=== PATIENT | female | born 1955 | race Caucasian/White ===

== ENCOUNTER 2022-08-16 08:18 | Observation (INO) ==
[2022-08-16 09:08] LABS: Appearance Urine Clear (Clear); Bacteria Urine Automated Negative (Negative); Bilirubin Urine Negative (Negative); Blood Urine Trace (Negative); Color Urine Yellow; Epithelial Cell Urine Auto 20-30 /lpf (0-5); Glucose Urine UA Negative (Negative); Ketones Urine 1+ (Negative); Leukocyte Esterase Urine Negative (Negative); Nitrite Urine Negative (Negative); Protein Urine 1+ (Negative); Specific Gravity Urine 1.015 (1.000-1.030); Urobilinogen Urine Negative (Negative); pH Urine 7.5 (4.5-7.5)
[2022-08-16] MEDS ORDERED: MoRPHine SULFATE 4 MG/ML 1 ML CARP\\VIAL IV PRN (09:08)
[2022-08-16] MEDS ORDERED: ONDANSETRON INJ 2 MG/ML 2 ML VIAL IV STA (09:08)
[2022-08-16 09:09] LABS: Basophils # (auto) 0.03 K/uL (0-0.2); Basophils % (auto) 0.3 %; Eosinophils # (auto) 0.04 K/uL (0-0.50); Eosinophils % (auto) 0.4 %; Hematocrit (blood only) 43.3 % (37.0-47.0); Hemoglobin 14.5 g/dl (12.0-16.0); Immature Granulocytes # (auto) 0.06 K/uL (0.01-0.20); Immature Granulocytes % (auto) 0.7 %; Lymphocytes # (auto) 1.29 K/uL (1.2-3.4); Lymphocytes % (auto) 14.4 %; Mean Corpuscular Hemoglobin 28.8 pg (25.0-34.0); Mean Corpuscular Hgb Conc 33.5 g/dL (32.0-36.0); Mean Corpuscular Volume 85.9 fL (80.0-100.0); Mean Platelet Volume 9.7 fL (9.4-12.4); Monocytes # (auto) 0.84 K/uL (0.11-0.59); Monocytes % (auto) 9.4 %; Neutrophils # (auto) 6.67 K/uL (1.40-6.50); Neutrophils % (auto) 74.8 %; Platelet Count 176 K/uL (130-400); RDW Coefficient of Variation 12.2 % (11.5-14.5); Red Blood Count 5.04 M/uL (4.20-5.40); White Blood Count 8.93 K/ul (4.8-10.8)
--- NOTE | 2022-08-16 09:12 | Emergency Department Note ---
Impression & Plan Acute upper abdominal pain, Peptic ulcer disease, Severe hypertension, Left- sided chest pain ED Provider Note INFORMANT: Patient and friend ED PROVIDER(S): Mariano Benson MD CHIEF COMPLAINT: Abdominal pain PLAN: Disposition: Admitted Condition: Good Outpatient prescription management: none Referral: None MEDICAL DECISION MAKING: Patient presented because of abdominal pain. She was tender in the upper part of her abdomen. Work-up was initiated. Patient's ECG did not reveal any acute ischemia. She was offered morphine and Zofran but declined. Her CBC and chemistry panels were unremarkable. Patient underwent CT imaging and there was concerns for peptic ulcer disease. Radiology thought gastritis possible as well. This would fit with the area of pain. The patient was also found to be severely hypertensive. She has not been taking any prescribed medications but was previously diagnosed with hypertension. Patient does not currently have a primary doctor. She was given a dose of IV labetalol due to the marked elevation of her blood pressure. She was also given IV Pepcid. Patient will need further management in the hospital due to the severe hypertension as well as this new diagnosis for the gastric issue. [facility] Patient was evaluated in the ER and admitted for further management. Discussed with manufacturing maintenance manager After review of the information above and other included data, I feel the patient requires admission. Triage Nursing notes reviewed and agree them. Vital Signs: reviewed and remarkable for no significant abnormalities Prior /Outside records reviewed: None available Differential diagnosis: Appendicitis, ovarian cyst, ovarian torsion, ectopic , TOA, PID, infections, diverticulitis, UTI, obstruction, mesenteric ischemia, aortic p athology, inflammatory bowel disease, renal colic, PUD, pancreatitis, biliary pathology, hernia, volvulus, constipation, as well as other pathologies. Diagnostics, as interpreted by me: EC Lead ECG performed and revealed normal sinus rhythym at 63 beats per minute, normal [place], QRS normal. No elevation or depression. No PACs. No PVCs Cardiac Monitoring: Cardiac monitoring ordered by me: The patient was placed on continuous cardiac monitoring and observed. It revealed a normal sinus rhythm at 67 beats per minute without ectopy or evidence of dysrhythmia. Medical decision rules: none Imaging studies: CT scan of the abdomen pelvis as above. I refer you to the EMR for further details. HPI: The patient is a 67 year old female who presents to the Emergency Room with complaints of upper abdominal pain. This started 3 days ago and is worsening. The patient also notes the following associated symptoms, blurry vision, high blood pressure, headache, left chest pain that started today, decreased appetite. The patient has taken no medication for relieving factors. Current pain is rated as 10/10. No prior history of the same. Denies abdominal surgery. Pain does radiate to the back and left shoulder. Patient has a history of hypertension and using metoprolol. Patient has not done so in many years. Does not have primary care. Pt denies LOC, fevers, chills, diaphoresis, neck pain, breathing difficulties, nausea, vomiting,melena, hematochezia, urinary symptoms, numbness, weakness, lymphadenopathy, rash, or other compl aints. PAST MEDICAL HISTORY: See Below, hypertension PAST SURGICAL HISTORY: See Below, denies SOCIAL HISTORY: See Below, non-smoker HOME MEDICATIONS: See Below ALLERGIES: See Below VITALS: See Below PHYSICAL EXAMINATION: GENERAL: Awake, alert, uncomfortable-appearing, in no distress HENT: Normocephalic, atraumatic. Oropharynx unremarkable. EYES: Normal conjunctiva. Sclera non-icteric. NECK: Inspection normal. Non-tender. Supple. No nuchal rigidity. FROM. No masses. RESPIRATORY: Clear to auscultation. No wheezes. No rales. Normal respiratory effort. CARDIAC: Normal rate. Normal rhythm. No murmurs. No rubs. Extremities warm and well perfused. Pulses equal. No JVD. GI: Soft, non-distended. Bilateral upper quadrant tenderness to palpation. No rebound or guarding. No masses. RECTAL: Deferred. MUSCULOSKELETAL: Atraumatic. Chest examination reveals no tenderness. The back is symmetrical on inspection without obvious abnormality. There is no CVA tenderness to palpation. No joint edema. LOWER EXTREMITIES: Calves are equal size bilaterally and non-tender. No edema. No discoloration. NEURO: Normal sensorium. No sensory or motor deficits noted. SKIN: No rash or jaundice noted. Past Med/Surg History Medical History (Updated 08/16/22 @ 17:43 by Mariano Benson MD) No significant medical problems Surgical History (Updated 08/16/21 @ 15:39 by JOSE Moise III) No history of previous surgery Family History (Updated 08/16/21 @ 15:40 by JOSE Moise III) Mother Heart disease Sister Diabetes Brother Diabetes Father Liver disease Denies family history of Ovarian cancer Prostate cancer Myocardial infarction Breast cancer Colorectal cancer Social History (Updated 08/16/21 @ 15:28 by Kaleigh Spicer LPN) Smoking Status: Never smoker Second Hand Exposure: No; Do You Dip or Chew Tobacco: No; Hx Alcohol Use: No Hx Substance Use: No Preferred Language: Indonesian Communication Ability: Effective Visual Impairment: No Limitations Hearing Ability: Normal Guitar Repairer Required: No Beliefs That Will Affect Care: None marital status: Single Current Living Situation: Alone current occupational status: employed current occupation: [employer] Feels Safe at Home: Yes Safety Concerns: Feels Safe At This Time Childhood Exposure to Second-Hand Smoke: No Diet: regular caffeine: Yes during the past year weight has: remained stable Dental Care, Regularly: No Physical Activity Frequency: Daily Seatbelt Use: sometimes Sunscreen Use: No Assistive Devices: None Allergies Allergies Allergy/AdvReac Type Severity Reaction Status Date / Time acetaminophen [From Tylenol] Allergy Intermediate Stomach Unverified 08/16/22 10:33 Pain Home Meds Home Medications Medication Instructions Recorded Confirmed ibuprofen 200 mg tablet (IBU-200) 200 mg PO Q6H PRN pain or fever 08/16/22 08/16/22 Results & Data (ED) Vital Signs Vital Signs - 24 hr 08/16/22 08:28 08/16/22 08:50 08/16/22 08:50 Temperature 36.1 C L Temperature Source Temporal Artery Scan Pulse Rate 64 62 67 Pulse Rate [Right Finger] Pulse Rate from SpO2 Sensor 66 Pulse Rhythm [Right Finger] Pulse Strength [Right Finger] Respiratory Rate 19 12 Respiratory Effort / Characteristics Non-Labored Spontaneous Respiratory Depth Normal Respiratory Pattern Blood Pressure 212/108 H 210/112 H Blood Pressure [Right Arm] Blood Pressure Mean 142 144 Blood Pressure Mean [Right Arm] Blood Pressure Position [Right Arm] Pulse Oximetry 97 95 Oxygen Delivery Method Room Air Room Air Oxygen Flow Rate Sepsis Recent Fever Within 48 Hours No Sepsis New/Unexplained Change in Mental Status No Sepsis Action Taken by Nursing No Action Required Oxygen Flow Rate - Titration Pulse Oximetry Post Tiitration 08/16/22 09:00 08/16/22 10:13 08/16/22 10:13 Temperature Temperature Source Pulse Rate 70 65 Pulse Rate [Right Finger] Pulse Rate from SpO2 Sensor 72 64 Pulse Rhythm [Right Finger] Pulse Strength [Right Finger] Respiratory Rate 18 18 Respiratory Effort / Characteristics Respiratory Depth Respiratory Pattern Blood Pressure 204/113 H 222/116 H 222/116 H Blood Pressure [Right Arm] Blood Pressure Mean 143 151 151 Blood Pressure Mean [Right Arm] Blood Pressure Position [Right Arm] Pulse Oximetry 96 93 Oxygen Delivery Method Room Air Oxygen Flow Rate Sepsis Recent Fever Within 48 Hours Sepsis New/Unexplained Change in Mental Status Sepsis Action Taken by Nursing Oxygen Flow Rate - Titration Pulse Oximetry Post Tiitration 08/16/22 10:30 08/16/22 11:08 08/16/22 11:00 Temperature Temperature Source Pulse Rate 71 Pulse Rate [Right Finger] 65 Pulse Rate from SpO2 Sensor 70 Pulse Rhythm [Right Finger] Regular Pulse Strength [Right Finger] Normal Respiratory Rate 13 15 Respiratory Effort / Characteristics Non-Labored Spontaneous Respiratory Depth Normal Respiratory Pattern Regular Blood Pressure 221/134 H 203/105 H Blood Pressure [Right Arm] 203/105 H Blood Pressure Mean 163 137 Blood Pressure Mean [Right Arm] 137 Blood Pressure Position [Right Arm] Lying Pulse Oximetry 94 93 Oxygen Delivery Method Room Air Room Air Oxygen Flow Rate Sepsis Recent Fever Within 48 Hours Sepsis New/Unexplained Change in Mental Status Sepsis Action Taken by Nursing Oxygen Flow Rate - Titration Pulse Oximetry Post Tiitration 08/16/22 11:00 08/16/22 11:30 08/16/22 11:57 Temperature Temperature Source Pulse Rate 61 66 Pulse Rate [Right Finger] Pulse Rate from SpO2 Sensor 62 Pulse Rhythm [Right Finger] Pulse Strength [Right Finger] Respiratory Rate 18 14 Respiratory Effort / Characteristics Respiratory Depth Respiratory Pattern Blood Pressure 161/77 H Blood Pressure [Right Arm] Blood Pressure Mean 105 Blood Pressure Mean [Right Arm] Blood Pressure Position [Right Arm] Pulse Oximetry 91 86 L Oxygen Delivery Method Room Air Oxygen Flow Rate 0 Sepsis Recent Fever Within 48 Hours Sepsis New/Unexplained Change in Mental Status Sepsis Action Taken by Nursing Oxygen Flow Rate - Titration 3 Pulse Oximetry Post Tiitration 98 08/16/22 11:31 08/16/22 11:31 08/16/22 12:00 Temperature Temperature Source Pulse Rate 66 62 Pulse Rate [Right Finger] Pulse Rate from SpO2 Sensor 61 Pulse Rhythm [Right Finger] Pulse Strength [Right Finger] Respiratory Rate 19 15 Respiratory Effort / Characteristics Respiratory Depth Respiratory Pattern Blood Pressure 161/77 H Blood Pressure [Right Arm] Blood Pressure Mean 105 Blood Pressure Mean [Right Arm] Blood Pressure Position [Right Arm] Pulse Oximetry 95 Oxygen Delivery Method Oxygen Flow Rate Sepsis Recent Fever Within 48 Hours Sepsis New/Unexplained Change in Mental Status Sepsis Action Taken by Nursing Oxygen Flow Rate - Titration Pulse Oximetry Post Tiitration 08/16/22 12:01 08/16/22 12:01 08/16/22 12:30 Temperature Temperature Source Pulse Rate 64 80 Pulse Rate [Right Finger] Pulse Rate from SpO2 Sensor 64 Pulse Rhythm [Right Finger] Pulse Strength [Right Finger] Respiratory Rate 19 17 Respiratory Effort / Characteristics Respiratory Depth Respiratory Pattern Blood Pressure 211/109 H Blood Pressure [Right Arm] Blood Pressure Mean 143 Blood Pressure Mean [Right Arm] Blood Pressure Position [Right Arm] Pulse Oximetry 94 Oxygen Delivery Method Oxygen Flow Rate Sepsis Recent Fever Within 48 Hours Sepsis New/Unexplained Change in Mental Status Sepsis Action Taken by Nursing Oxygen Flow Rate - Titration Pulse Oximetry Post Tiitration 08/16/22 12:31 08/16/22 12:31 Temperature Temperature Source Pulse Rate 66 Pulse Rate [Right Finger] Pulse Rate from SpO2 Sensor Pulse Rhythm [Right Finger] Pulse Strength [Right Finger] Respiratory Rate 19 Respiratory Effort / Characteristics Respiratory Depth Respiratory Pattern Blood Pressure 213/132 H Blood Pressure [Right Arm] Blood Pressure Mean 159 Blood Pressure Mean [Right Arm] Blood Pressure Position [Right Arm] Pulse Oximetry Oxygen Delivery Method Oxygen Flow Rate Sepsis Recent Fever Within 48 Hours Sepsis New/Unexplained Change in Mental Status Sepsis Action Taken by Nursing Oxygen Flow Rate - Titration Pulse Oximetry Post Tiitration Laboratory Data 08/16/22 08:48 08/16/22 08:48 Lab Results 08/16/22 08/16/22 08/16/22 Range/Units 08:48 08:48 08:49 WBC 8.93 (4.8-10.8) K/ul RBC 5.04 (4.20-5.40) M/uL Hgb 14.5 (12.0-16.0) g/dl Hct 43.3 (37.0-47.0) % MCV 85.9 (80.0-100.0) fL MCH 28.8 (25.0-34.0) pg MCHC 33.5 (32.0-36.0) g/dL RDW Std Deviation 38.0 (36.4-46.3) fL RDW Coeff of Cindy 12.2 (11.5-14.5) % Plt Count 176 (130-400) K/uL MPV 9.7 (9.4-12.4) fL Immature Gran % (Auto) 0.7 % Neut % (Auto) 74.8 % Lymph % (Auto) 14.4 % [place] % (Auto) 9.4 % Eos % (Auto) 0.4 % Baso % (Auto) 0.3 % Neut # (Auto) 6.67 H (1.40-6.50) K/uL Lymph # (Auto) 1.29 (1.2-3.4) K/uL [place] # (Auto) 0.84 H (0.11-0.59) K/uL Eos # (Auto) 0.04 (0-0.50) K/uL Baso # (Auto) 0.03 (0-0.2) K/uL Immature Gran # (Auto) 0.06 (0.01-0.20) K/uL Sodium 136 (136-145) mmol/L Potassium 3.3 L (3.5-5.1) mmol/L Chloride 100 (98-107) mmol/L Carbon Dioxide 28 (21-32) mmol/L Anion Gap 8 (3-11) BUN 10 (6-23) mg/dl Creatinine 0.58 L (0.6-1.2) mg/dl Est Cr Clr Drug Dosing 121.1 ml/min Est GFR ( Amer) 111.3 ml/min Est GFR (Non-Af Amer) 96.1 ml/min BUN/Creatinine Ratio 17.2 (10-20) Glucose 116 H (70-99(Fasting)) mg/dl Calcium 8.7 (8.6-10.3) mg/dl Total Bilirubin 1.2 H (0.2-1.0) mg/dl AST 17 (13-39) U/L ALT 18 (7-52) U/L Alkaline Phosphatase 49 (34-104) U/L Troponin I High Sens 13.2 (0-14) pg/ml Total Protein 7.4 (6.0-8.3) gm/dl Albumin 4.2 (3.4-5.0) gm/dl Globulin 3.2 (2.5-4.0) gm/dl Albumin/Globulin Ratio 1.3 (0.9-2) Lipase 20 (11-82) U/L Urine Color Yellow Urine Appearance Clear (Clear) Urine pH 7.5 (4.5-7.5) Ur Specific [place] 1.015 (1.000-1.030) Urine Protein 1+ H (Negative) Urine Glucose (UA) Negative (Negative) Urine Ketones 1+ H (Negative) Urine Blood Trace H (Negative) Urine Nitrite Negative (Negative) Urine Bilirubin Negative (Negative) Urine Urobilinogen Negative (Negative) Ur Leukocyte Esterase Negative (Negative) Urine WBC (Auto) 1-5 (0-5) /hpf Urine RBC (Auto) 5-10 H (0-4) /hpf U Hyaline Cast (Auto) 1-5 (0-5) /lpf U Epithel Cells (Auto) 20-30 H (0-5) /lpf Urine Bacteria (Auto) Negative (Negative) SARS-CoV-2, RNA, NAAT (NEGATIVE) 08/16/22 Range/Units 11:36 WBC (4.8-10.8) K/ul RBC (4.20-5.40) M/uL Hgb (12.0-16.0) g/dl Hct (37.0-47.0) % MCV (80.0-100.0) fL MCH (25.0-34.0) pg MCHC (32.0-36.0) g/dL RDW Std Deviation (36.4-46.3) fL RDW Coeff of Cindy (11.5-14.5) % Plt Count (130-400) K/uL MPV (9.4-12.4) fL Immature Gran % (Auto) % Neut % (Auto) % Lymph % (Auto) % [place] % (Auto) % Eos % (Auto) % Baso % (Auto) % Neut # (Auto) (1.40-6.50) K/uL Lymph # (Auto) (1.2-3.4) K/uL [place] # (Auto) (0.11-0.59) K/uL Eos # (Auto) (0-0.50) K/uL Baso # (Auto) (0-0.2) K/uL Immature Gran # (Auto) (0.01-0.20) K/uL Sodium (136-145) mmol/L Potassium (3.5-5.1) mmol/L Chloride (98-107) mmol/L Carbon Dioxide (21-32) mmol/L Anion Gap (3-11) BUN (6-23) mg/dl Creatinine (0.6-1.2) mg/dl Est Cr Clr Drug Dosing ml/min Est GFR ( Amer) ml/min Est GFR (Non-Af Amer) ml/min BUN/Creatinine Ratio (10-20) Glucose (70-99(Fasting)) mg/dl Calcium (8.6-10.3) mg/dl Total Bilirubin (0.2-1.0) mg/dl AST (13-39) U/L ALT (7-52) U/L Alkaline Phosphatase (34-104) U/L Troponin I High Sens (0-14) pg/ml Total Protein (6.0-8.3) gm/dl Albumin (3.4-5.0) gm/dl Globulin (2.5-4.0) gm/dl Albumin/Globulin Ratio (0.9-2) Lipase (11-82) U/L Urine Color Urine Appearance (Clear) Urine pH (4.5-7.5) Ur Specific [place] (1.000-1.030) Urine Protein (Negative) Urine Glucose (UA) (Negative) Urine Ketones (Negative) Urine Blood (Negative) Urine Nitrite (Negative) Urine Bilirubin (Negative) Urine Urobilinogen (Negative) Ur Leukocyte Esterase (Negative) Urine WBC (Auto) (0-5) /hpf Urine RBC (Auto) (0-4) /hpf U Hyaline Cast (Auto) (0-5) /lpf U Epithel Cells (Auto) (0-5) /lpf Urine Bacteria (Auto) (Negative) SARS-CoV-2, RNA, NAAT NEGATIVE (NEGATIVE) Administered Medications Discontinued Medications Al Hydrox/Mg Hydrox/Simethicone (Gi Cocktail Ed Use) 1 dose PO NOW ONE Stop: 08/16/22 12:31 Last Admin: 08/16/22 12:47 Dose: 1 dose Documented By: [employer]IDENT [employer] Amlodipine Besylate (Amlodipine Besylate 5 Mg Tab) 2.5 mg PO NOW ONE Stop: 08/16/22 12:24 Last Admin: 08/16/22 12:48 Dose: Not Given Documented By: JOSUÉ Sodium Chloride (Nss 1000ml) 1,000 mls @ 125 mls/hr IV .Q8H RODRIGO Stop: 09/15/22 09:14 Last Infusion: 08/16/22 15:33 Dose: 0 mls/hr Documented By: Admin: 08/16/22 09:15 Dose: 125 mls/hr Documented By: MG Famotidine (Pepcid 20mg Iv Push) 20 mg in 5 mls @ 2.5 mls/min IV NOW STA Stop: 08/16/22 10:55 Last Admin: 08/16/22 11:10 Dose: 2.5 mls/min Documented By: JOSUÉ Pantoprazole Sodium 40 mg/ (Syringe) 10 mls @ 5 mls/min IV NOW ONE Stop: 08/16/22 12:13 Last Admin: 08/16/22 12:47 Dose: 5 mls/min Documented By: JOSUÉ Potassium Chloride (K Dell / Wtr) 10 meq in 100 mls @ 100 mls/hr IV Q1H RODRIGO Stop: 08/16/22 17:29 Last Admin: 08/16/22 17:22 Dose: 100 mls/hr Documented By: Infusion: 08/16/22 17:22 Dose: 100 mls/hr Documented By: Admin: 08/16/22 16:37 Dose: 100 mls/hr Documented By: HAWA Ioversol (Optiray 320 100ml) 87 ml IV ONCE ONE Stop: 08/16/22 10:07 Last Admin: 08/16/22 10:07 Dose: 87 ml Documented By: DYANA Labetalol HCl (Labetalol Hcl Iv 5 Mg/Ml 20ml) 10 mg IV NOW STA Stop: 08/16/22 10:55 Last Admin: 08/16/22 11:10 Dose: 10 mg Documented By: [employer]IDENT [employer] Co-signed By: YOVANA Labetalol HCl (Labetalol Hcl Iv 5 Mg/Ml 20ml) 10 mg IV NOW STA Stop: 08/16/22 12:27 Last Admin: 08/16/22 12:48 Dose: 10 mg Documented By: [employer]IDENT [employer] Co-signed By: MARY Morphine Sulfate (Morphine Sulfate 4 Mg/Ml 1 Ml Carp\Vial) 4 mg IV Q15M PRN PRN Reason: Pain Stop: 08/30/22 09:07 Last Admin: 08/16/22 11:37 Dose: 4 mg Documented By: JOSUÉ Ondansetron HCl (Ondansetron Inj 2 Mg/Ml 2 Ml Vial) 4 mg IV NOW STA Stop: 08/16/22 09:09 Last Admin: 08/16/22 09:14 Dose: 4 mg Documented By: MG Imaging Data Radiologist's Impression: Abdomen/Pelvis CT 08/16/22 09:[address] WITH IV CONTRAST CT DOSE: 1507.39 mGy.cm HISTORY: upper abd pain TECHNIQUE: Multiaxial CT images of the abdomen and pelvis were performed following the use of intravenous contrast. A dose lowering technique was utilized adhering to the principles of ALARA. COMPARISON STUDY: None. FINDINGS: The lung bases are essentially clear. No pneumoperitoneum. No pneumatosis. No acute fractures identified. The liver, gallbladder, spleen, adrenal glands, pancreas, and kidneys are within normal limits. There are few small bilateral peripelvic renal cysts. No hydronephrosis. The main portal vein is patent. Normal caliber abdominal aorta. No retroperitoneal or pelvic lymphadenopathy. No pelvic free fluid. The bladder, uterus, and adnexa are unremarkable. A few colonic diverticula. No evidence for acute diverticulitis. Normal appendix. No dilated loops of bowel to suggest an obstruction. Questional mild thickening of the gastric antrum with minimal adjacent inflammatory change. This raises the possibility of a mild gastritis versus an underlying gastric ulcer. No extraluminal gas to suggest a perforation. IMPRESSION: 1. Questional mild thickening of the gastric antrum with minimal adjacent inflammatory change. This raises the possibility of a mild gastritis versus an underlying gastric ulcer. No extraluminal gas to suggest a perforation. 2. No evidence for bowel obstruction. 3. Normal appendix. 4. Colonic diverticulosis. No evidence for acute diverticulitis. ACT 112: Negative or not required by law. Electronically signed by: Miko Hardin M.D. 08/16/2022 10:26 AM Chest X-Ray 08/16/22 12:08 XR chest 1V portable CLINICAL HISTORY: hypoxia TECHNIQUE: Single frontal radiograph of the chest was obtained. Comparison: Comparison is made to chest radiograph 05/20/2011 FINDINGS: No lines and tubes are seen. Cardiomegaly is noted. The lungs are clear. No evidence of pleural effusion or pneumothorax. Eventration of the right hemidiaphragm is noted. IMPRESSION: No acute abnormalities and in particular no radiographic evidence of pneumonia. Stable cardiomegaly. ACT 112: Negative or not required by law. Electronically signed by: Ankush Forbes M.D. 08/16/2022 12:33 PM Venous Doppler Study 08/16/22 12:18 US venous doppler LE BI CLINICAL HISTORY: b/l LE swelling and calf pain ?DVT TECHNIQUE: Bilateral lower extremity real-time compression venous ultrasound wit h Color Doppler imaging. Utilizing real-time ultrasonic imaging multiple real time high-resolution ultrasonic images with compression and noncompression maneuvers of the deep venous system in addition to color doppler imaging were performed from the common femoral vein through the proximal calf veins. COMPARISON: None available at the time of this dictation. FINDINGS/IMPRESSION: Currently there is normal compressibility of the deep venous system from the common femoral vein through the proximal calf veins. No superficial venous thrombosis is identified. ACT 112: Negative or not required by law. Electronically signed by: Ankush Forbes M.D. 08/16/2022 1:38 PM Discharge Plan Visit Data Chief Complaint: Abdominal Pain Stated Complaint: ABDOMINAL PAIN ED Provider: Mariano Benson Discharge Problem: Acute upper abdominal pain, Peptic ulcer disease, Severe hypertension, Left- sided chest pain Patient Disposition: Admitted As Inpatient Discharge Instructions Interventions: ED Discharge Assessment Last Done: 08/16/22 15:00
[2022-08-16] MEDS ORDERED: SODIUM CHLORIDE 0.9% 1000ML 1,000 ML IV SCH (09:15)
[2022-08-16 09:30] LABS: Albumin Globulin Ratio 1.3 (0.9-2); Albumin Level 4.2 gm/dl (3.4-5.0); BUN Creatinine Ratio 17.2 (10-20); Bilirubin,Total 1.2 mg/dl (0.2-1.0); Calcium 8.7 mg/dl (8.6-10.3); Creatinine Clr Calc Pharmacy 121.1 ml/min; Est GFR (African American) 111.3 ml/min; Est GFR (Non-African American) 96.1 ml/min; Globulin 3.2 gm/dl (2.5-4.0); Potassium 3.3 mmol/L (3.5-5.1); Total Protein 7.4 gm/dl (6.0-8.3)
[2022-08-16 09:36] LABS: Troponin I High Sensitivity 13.2 pg/ml (0-14)
[2022-08-16] MEDS ORDERED: OPTIRAY 320 100ml IV ONE (10:06)
--- NOTE | 2022-08-16 10:28 | CT Scan Report ---
ABDOMEN AND PELVIS CT WITH IV CONTRAST CT DOSE: 1507.39 mGy.cm HISTORY: upper abd pain TECHNIQUE: Multiaxial CT images of the abdomen and pelvis were performed following the use of intrave nous contrast. A dose lowering technique was utilized adhering to the principles of ALARA. COMPARISON STUDY: None. FINDINGS: The lung bases are essentially clear. No pneumoperitoneum. No pneumatosis. No acute fractur es identified. The liver, gallbladder, spleen, adrenal glands, pancreas, and kidneys are within lux l limits. There are few small bilateral peripelvic renal cysts. No hydronephrosis. The main portal ve in is patent. Normal caliber abdominal aorta. No retroperitoneal or pelvic lymphadenopathy. No pelvic free fluid. The bladder, uterus, and adnexa are unremarkable. A few colonic diverticula. No evidence for acute diverticulitis. Normal appendix. No dilated loops of bowel to suggest an obstruction. Ques tional mild thickening of the gastric antrum with minimal adjacent inflammatory change. This raises t he possibility of a mild gastritis versus an underlying gastric ulcer. No extraluminal gas to suggest a perforation. IMPRESSION: 1. Questional mild thickening of the gastric antrum with minimal adjacent inflammatory change. This r aises the possibility of a mild gastritis versus an underlying gastric ulcer. No extraluminal gas to suggest a perforation. 2. No evidence for bowel obstruction. 3. Normal appendix. 4. Colonic diverticulosis. No evidence for acute diverticulitis. ACT 112: Negative or not required by law. Electronically signed by: Miko Hardin M.D. 08/16/2022 10:26 AM
[2022-08-16] MEDS ORDERED: FAMOTIDINE 20MG IV PUSH 20 MG/5 ML SYR IV STA (10:54)
[2022-08-16] MEDS ORDERED: LABETALOL HCL IV 5 MG/ML 20ML IV STA ×2 (10:54→12:26)
--- NOTE | 2022-08-16 12:10 | History & Physical Report ---
Date of Service August 16, 2022 Assessment & Plan (1) Acute upper abdominal pain: Plan: Suspected gastritis/GERD Pantoprazole 40mg IV and famotidine 20mg IV now Will continue pantoprazole 40mg PO daily following this GI cocktail now, continue Maalox following this PRN If not improving consider GI consult (2) Hypertensive urgency: Plan: Suspect somewhat pain related. No acute stroke symptoms. Labetalol 10mg IV given in the ER, will repeat dose now, start thiazide diuretic if ongoing despite adequate pain control. (3) Localized swelling of both lower legs: Plan: US venous doppler to rule out DVT (4) Heartburn: (5) Hypoxia: Plan: CXR negative. suspect hypoventilation due to pain. Continue to monitor Plan VTE Prophylaxis - low risk Diet - NPO, advance as tolerated Disposition - observation to PCU Admission and Anticipated Discharge Date Admission Date: August 16, 2022 History of Present Illness Chief Complaint: Abdominal pain Primary Care Provider: Terence Copeland III, CRNP Maren Bolaños is a 67 year old female who presents to the ER with abdominal ramirez radiating to back and shoulder. Associated blurring of vision. She is not clear on timeline but reports heartburn more chronically over months. Takes ibuprofen/Advil twice weekly for foot pain. Progressively getting worse epigastric pain over the last 2 weeks, worse when she eats, No dysphagia or odynophagia. Does not regularly see a doctor. Reports her BP has been elevated at home for the last 1-2 weeks. No blurring vision, headache or dizziness. Allergies Allergy/AdvReac Type Severity Reaction Status Date / Time acetaminophen [From Tylenol] Allergy Intermediate Stomach Unverified 08/16/22 10:33 Pain Home Medications Medication Instructions Recorded Confirmed Type ibuprofen 200 mg tablet (IBU-200) 200 mg PO Q6H PRN pain or fever 08/16/22 08/16/22 History Past Med/Surg History Medical History (Updated 08/16/22 @ 17:43 by Mariano Benson MD) No significant medical problems Surgical History (Updated 08/16/21 @ 15:39 by JOSE Moise III) No history of previous surgery Family History (Updated 08/16/21 @ 15:40 by JOSE Moise III) Mother Heart disease Sister Diabetes Brother Diabetes Father Liver disease Denies family history of Ovarian cancer Prostate cancer Myocardial infarction Breast cancer Colorectal cancer Social History (Updated 08/16/21 @ 15:28 by Kaleigh Spicer LPN) Smoking Status: Never smoker Second Hand Exposure: No; Do You Dip or Chew Tobacco: No; Hx Alcohol Use: No Hx Substance Use: No Preferred Language: [place] Communication Ability: Effective Visual Impairment: No Limitations Hearing Ability: Normal Food And Nutrition Supervisor Required: No Beliefs That Will Affect Care: None marital status: Single Current Living Situation: Alone current occupational status: employed current occupation: [employer] Feels Safe at Home: Yes Safety Concerns: Feels Safe At This Time Childhood Exposure to Second-Hand Smoke: No Diet: regular caffeine: Yes during the past year weight has: remained stable Dental Care, Regularly: No Physical Activity Frequency: Daily Seatbelt Use: sometimes Sunscreen Use: No Assistive Devices: None Review of Systems Review of Systems: All systems reviewed & are unremarkable except as noted in HPI & below Leg swelling right > left for 2 months progressively getting worse with leila ateral calf pain Physical Exam Constitutional: well developed, well nourished and + acute distress (abdominal pain) ENMT: external ear and nose normal, oropharynx normal Respiratory: normal respiratory effort, lungs clear to auscultation Cardiovascular: RRR, no murmur, no edema Gastrointestinal (Abdomen): Inspection/Auscultation: abdomen normal to inspection; abdomen not distended Percussion/Palpation: + abdomen tender (epigastric) and abdomen soft; no guarding and abdomen not rigid Musculoskeletal: no cyanosis or clubbing, extremities motor strength 5/5 Skin: no rashes, warm and dry Neurologic: moves all extremities and awake; not confused Psychiatric: A+Ox3, euthymic affect Results & Data Results & Data Vital Signs (Past 12 Hours) Vital Signs Temp Pulse Pulse Resp BP BP Pulse Ox 08/16/22 11:57 86 L 08/16/22 11:30 66 14 161/77 H 08/16/22 11:00 61 18 91 08/16/22 11:00 203/105 H 08/16/22 11:08 65 15 203/105 H 93 08/16/22 10:30 71 13 221/134 H 94 08/16/22 10:13 65 18 222/116 H 93 08/16/22 10:13 222/116 H 08/16/22 09:00 70 18 204/113 H 96 08/16/22 08:50 67 12 210/112 H 95 08/16/22 08:50 62 08/16/22 08:28 36.1 C L 64 19 212/108 H 97 O2 Del Method O2 Flow Rate 08/16/22 11:57 Room Air 0 08/16/22 11:30 08/16/22 11:00 08/16/22 11:00 08/16/22 11:08 Room Air 08/16/22 10:30 Room Air 08/16/22 10:13 08/16/22 10:13 08/16/22 09:00 Room Air 08/16/22 08:50 Room Air 08/16/22 08:50 08/16/22 08:28 Room Air Laboratory Results Abnormal lab results 08/16/22 08/16/22 08/16/22 Range/Units 08:48 08:48 08:49 Neut # (Auto) 6.67 H (1.40-6.50) K/uL [place] # (Auto) 0.84 H (0.11-0.59) K/uL Potassium 3.3 L (3.5-5.1) mmol/L Creatinine 0.58 L (0.6-1.2) mg/dl Glucose 116 H (70-99(Fasting)) mg/dl Total Bilirubin 1.2 H (0.2-1.0) mg/dl Urine Protein 1+ H (Negative) Urine Ketones 1+ H (Negative) Urine Blood Trace H (Negative) Urine RBC (Auto) 5-10 H (0-4) /hpf U Epithel Cells (Auto) 20-30 H (0-5) /lpf Diagnostic Findings XR chest 1V portable CLINICAL HISTORY: hypoxia TECHNIQUE: Single frontal radiograph of the chest was obtained. Comparison: Comparison is made to chest radiograph 05/20/2011 FINDINGS: No lines and tubes are seen. Cardiomegaly is noted. The lungs are clear. No evidence of pleural effusion or pneumothorax. Eventration of the right hemidiaphragm is noted. IMPRESSION: No acute abnormalities and in particular no radiographic evidence of pneumonia. Stable cardiomegaly. ABDOMEN AND PELVIS CT WITH IV CONTRAST CT DOSE: 1507.39 mGy.cm HISTORY: upper abd pain TECHNIQUE: Multiaxial CT images of the abdomen and pelvis were performed following the use of intravenous contrast. A dose lowering technique was utilized adhering to the principles of ALARA. COMPARISON STUDY: None. FINDINGS: The lung bases are essentially clear. No pneumoperitoneum. No pneumatosis. No acute fractures identified. The liver, gallbladder, spleen, adrenal glands, pancreas, and kidneys are within normal limits. There are few small bilateral peripelvic renal cysts. No hydronephrosis. The main portal vein is patent. Normal caliber abdominal aorta. No retroperitoneal or pelvic lymphadenopathy. No pelvic free fluid. The bladder, uterus, and adnexa are unremarkable. A few colonic diverticula. No evidence for acute diverticulitis. Normal appendix. No dilated loops of bowel to suggest an obstruction. Questional mild thickening of the gastric antrum with minimal adjacent inflammatory change. This raises the possibility of a mild gastritis versus an underlying gastric ulcer. No extraluminal gas to suggest a perforation. IMPRESSION: 1. Questional mild thickening of the gastric antrum with minimal adjacent inflammatory change. This raises the possibility of a mild gastritis versus an underlying gastric ulcer. No extraluminal gas to suggest a perforation. 2. No evidence for bowel obstruction. 3. Normal appendix. 4. Colonic diverticulosis. No evidence for acute diverticulitis. Medications Administered ER Medications Given: ECG Rate (beats per minute): 63 Rhythm: normal sinus Findings: no acute ischemic change Comparison ECG Date: from (May 20, 2011) Change: no significant change Code Status & VTE Plan Code Status Full VTE Prophylaxis Plan VTE Prophylaxis will be ordered: Yes PG Care Time/CCT Total # of Minutes Spent Total Time Spent with Patient: Total time spent is greater than 50% in coordination of care (as documented) at patient's floor/unit and/or counseling patient: Coding Level of Care Code 85678 INT INP/OBS CARE 2/55MIN Diagnoses Acute upper abdominal pain R10.10 Hypertensive urgency I16.0 Localized swelling of both lower legs R22.43 Heartburn R12 Hypoxia R09.02
[2022-08-16] MEDS ORDERED: PANTOprazole 40 MG in SYRINGE 0 ML IV ONE (12:12)
[2022-08-16] MEDS ORDERED: amLODIPine BESYLATE 5 MG TAB PO ONE (12:23)
[2022-08-16] MEDS ORDERED: ALUMINUM/MAGNESIUM SUSP 18 ML, LIDOCAINE VISCOUS 2% SOLN 6 ML, BARCODE IDENTIFIER 1 EACH PO STA (12:23)
[2022-08-16] MEDS ORDERED: GI COCKTAIL ED USE PO ONE (12:30)
--- NOTE | 2022-08-16 12:34 | XRay Report ---
XR chest 1V portable CLINICAL HISTORY: hypoxia TECHNIQUE: Single frontal radiograph of the chest was obtained. Comparison: Comparison is made to chest radiograph 05/20/2011 FINDINGS: No lines and tubes are seen. Cardiomegaly is noted. The lungs are clear. No evidence of pleural effus ion or pneumothorax. Eventration of the right hemidiaphragm is noted. IMPRESSION: No acute abnormalities and in particular no radiographic evidence of pneumonia. Stable cardiomegaly. ACT 112: Negative or not required by law. Electronically signed by: Ankush Forbes M.D. 08/16/2022 12:33 PM
--- NOTE | 2022-08-16 13:40 | Ultrasound Report ---
US venous doppler LE BI CLINICAL HISTORY: b/l LE swelling and calf pain ?DVT TECHNIQUE: Bilateral lower extremity real-time compression venous ultrasound with Color Doppler imagi ng. Utilizing real-time ultrasonic imaging multiple real time high-resolution ultrasonic images with compression and noncompression maneuvers of the deep venous system in addition to color doppler imagi ng were performed from the common femoral vein through the proximal calf veins. COMPARISON: None available at the time of this dictation. FINDINGS/IMPRESSION: Currently there is normal compressibility of the deep venous system from the common femoral vein thro ugh the proximal calf veins. No superficial venous thrombosis is identified. ACT 112: Negative or not required by law. Electronically signed by: Ankush Forbes M.D. 08/16/2022 1:38 PM
[2022-08-16] MEDS: POTASSIUM CHLORIDE / WTR 10 MEQ/100 ML PLCT IV SCH ×2 (16:37→17:22)
[2022-08-16] MEDS ORDERED: ALUMINUM/MAGNESIUM/SIMETH (MAALOX MAX) 30 ML UDC PO PRN (16:38)
--- NOTE | 2022-08-16 17:22 | Electrocardiogram Report ---
Test Reason : Blood Pressure : / mmHG Vent. Rate : 063 BPM Atrial Rate : 063 BPM P-R Int : 154 ms QRS Dur : 098 ms QT Int : 422 ms P-R-T Axes : 021 044 058 degrees QTc Int : 431 ms Normal sinus rhythm Normal ECG When compared with ECG of 20-MAY-2011 11:22, Vent. rate has decreased BY 35 BPM Nonspecific T wave abnormality no longer evident in Inferior leads Confirmed by Ramesh Rhoades ([id number]) on 08/16/2022 5:21:48 PM Referred By: Confirmed By:Ramesh Rhoades
[2022-08-16] MEDS ORDERED: PANTOprazole 40 MG TAB PO STA (20:35)
--- NOTE | 2022-08-16 20:38 | Discharge Summary ---
Date of Service August 16, 2022 Admission HPI Per Admitting Provider Maren Bolaños is a 67 year old female who presents to the ER with abdominal ramirez radiating to back and shoulder. Associated blurring of vision. She is not clear on timeline but reports heartburn more chronically over months. Takes ibuprofen/Advil twice weekly for foot pain. Progressively getting worse epigastric pain over the last 2 weeks, worse when she eats, No dysphagia or odynophagia. Does not regularly see a doctor. Reports her BP has been elevated at home for the last 1-2 weeks. No blurring vision, headache or dizziness. Principal Diagnosis Gastritis Discharge Exam Constitutional well developed and well nourished; no acute distress Gastrointestinal (Abdomen) Inspection/Auscultation: abdomen normal to inspection; abdomen not distended Percussion/Palpation: abdomen soft; abdomen nontender, no guarding and abdomen not rigid Neurologic moves all extremities and awake; not confused Psychiatric A+Ox3, euthymic affect Discharge Data Allergies Allergy/AdvReac Type Severity Reaction Status Date / Time acetaminophen [From Tylenol] Allergy Intermediate Stomach Unverified 08/16/22 10:33 Pain Ordered Studies 08/16/22 09:08 CT Abd and Pelvis [CT abd pelvis IV con only] Stat 1. Questional mild thickening of the gastric antrum with minimal adjacent inflammatory change. This raises the possibility of a mild gastritis versus an underlying gastric ulcer. No extraluminal gas to suggest a perforation. 2. No evidence for bowel obstruction. 3. Normal appendix. 4. Colonic diverticulosis. No evidence for acute diverticulitis. 08/16/22 12:18 US venous doppler LE BI Urgent Currently there is normal compressibility of the deep venous system from the common femoral vein through the proximal calf veins. No superficial venous thrombosis is identified. Hospital Course (1) Acute upper abdominal pain: Maren Bolaños is a 67 year old female observed on August 16, 2022 due to epigastric pain and high blood pressure. This was treated with intravenous pantoprazole, famotidine and GI cocktail. Blood pressure improved with pain control. She was diagnosed with started on oral pantoprazole 40mg PO daily and advised to stop NSAIDs. She was advised to follow up with her primary care physician for ongoing management. (2) Hypertensive urgency: (3) Localized swelling of both lower legs: US venous doppler to rule out DVT (4) Heartburn: (5) Hypoxia: Total Time Total Time Spent Total Time Spent (In Minutes): 25 Discharge Plan Discharge Items Patient Disposition: Home - Self-Care Reason For Visit: ABDOMINAL PAIN Discharge Diagnosis: Gastritis High blood pressure due to pain Activity: Resume your previous activity Non-emergency contact: Primary Care Provider Call non-emergency contact if: you have any medication questions and your symptoms worsen Follow-up/Referrals: Terence Copeland III, JOSE [Primary Care Provider] - Diet: Regular Addtl Attending Provider Instructions: You were observed at [facility] on August 16, 2022. You were diagnosed with gastritis (inflammation of your stomach) due to over the counter pain medication. This resolved with antacids and medication to reduce stomach. Please continue pantoprazole to avoid recurrence and follow up with a primary care provider for ongoing prescriptions and re-evaluation. You were also diagnosed with high blood pressure however this resolved with control of your pain. Please follow up with a primary care physician for this in addition. Please follow a diet which reduces heartburn such as low acidic foods, avoid spicy foods and caffeine. Please avoid all over the counter pain medication o ther than acetaminophen (Tylenol). Pending Studies at Discharge: No Stand-Alone Forms: My [facility], Smoking Cessation Medications and DC Order Prescriptions: New pantoprazole 40 mg tablet,delayed release (DR/EC) 40 mg PO DAILY Qty: 30 0RF Discontinued ibuprofen [IBU-200] 200 mg Tablet 200 mg PO Q6H PRN (Reason: pain or fever) Discharge Orders: Discharge Order (Routine); Ordered 08/16/22 Ordered By: Dima Irwin/Other Patient Handouts: ED GERD (Adult) Admission Data Admit Date/Time: 08/16/22 12:48 Attending Provider: Dima Sweet Admit Provider: Dima Sweet Primary Care Provider: Terence Copeland III Other Interventions: Discharge Summary Assessment (RN) Last Done: 08/16/22 21:01 Coding Level of Care Code None Diagnoses Acute upper abdominal pain R10.10 Hypertensive urgency I16.0 Localized swelling of both lower legs R22.43 Heartburn R12 Hypoxia R09.02
[2022-08-17] MEDS ORDERED: PANTOprazole 40 MG TAB PO SCH (09:00)
== END 2022-08-16 21:39 | disposition home or self-care (01) ==
LOC: ED 08:18 → 4W 08:18